=== PATIENT | male | born 1930 | race Two or more races ===

== ENCOUNTER 2017-09-14 02:55 | Emergency (ER) | payer MEDICARE, OTHER ==
--- NOTE | 2017-09-14 03:28 | ED Physician Documentation ---
PD HPI ABD PAIN - Stated complaint Stated Complaint: ABD PAIN/ANXIETY - Chief complaint Chief Complaint: Abd Pain - History obtained from History obtained from: Patient, Family - History of Present Illness Timing - onset: How many days ago (2) Timing - details: Gradual onset, Intermittant Quality: Cramping, Aching Location: Periumbilical, Suprapubic Worsened by: Palpation Associated symptoms: Nausea, Constipation. No: Fever, Vomiting, Diarrhea Similar symptoms before: Work up / diagnostics Recently seen: Emergency Dept - Additional information Additional information: Patient is an 86 year old male with no significant past medical history who is presenting to the emergency department for abdominal pain. Patient states that the pain has been intermittent for the last few days. patient was seen in another emergency department a few days prior and diagnosed with allergies. Patient states that his pain today is around his umbilicus. Review of Systems Constitutional: denies: Fever, Chills Nose: denies: Rhinorrhea / runny nose, Congestion Cardiac: denies: Chest pain / pressure, Palpitations Respiratory: denies: Dyspnea, Cough, Wheezing GI: reports: Abdominal Pain, Constipation. denies: Nausea, Vomiting, Diarrhea, Hematemesis : denies: Dysuria, Frequency, Unable to Void, Hematuria Skin: denies: Rash, Lesions Musculoskeletal: denies: Back pain Immunocompromised: denies: Immunocompromised PD PAST MEDICAL HISTORY - Past Medical History Past Medical History: Yes Respiratory: None Neuro: None Endocrine/Autoimmune: None GI: GERD : Benign prostate hypertrophy HEENT: Glaucoma Derm: None - Past Surgical History Past Surgical History: Yes - Present Medications Home Medications: Ambulatory Orders Medication Instructions Recorded Confirmed HYDROcod/ACETAM 5/325 [Vicodin 0.5 - 1 ea PO Q6H PRN #15 tablet 02/21/14 5/325] diazePAM [Valium] 5 mg PO TID PRN #14 tablet 02/01/16 - Allergies Allergies/Adverse Reactions: Allergies Allergy/AdvReac Type Severity Reaction Status Date / Time diphenhydramine AdvReac Unknown Unknown Verified 02/01/16 01:46 naproxen AdvReac Unknown Verified 09/14/17 03:08 - Social History Does the pt smoke?: No Smoking Status: Never smoker Does the pt drink ETOH?: No Does the pt have substance abuse?: No - Immunizations Immunizations are current?: Yes - POLST Patient has POLST: No PD ED PE NORMAL - Vitals Vital signs reviewed: Yes - General General: Alert and oriented X 3 - HEENT HEENT: Atraumatic - Neck Neck: Supple, no meningeal sign - Cardiac Cardiac: RRR - Respiratory Respiratory: No respiratory distress - Abdomen Abdomen: Soft, Non distended - Derm Derm: Normal color, Warm and dry - Extremities Extremities: No deformity - Neuro Neuro: Alert and oriented X 3 Eye Opening: Spontaneous PD ED PE EXPANDED - Abdomen Abdomen: Tender to palpation, Periumbilical. No: Rebound, Guarding Results - Vitals Vitals: Vital Signs - 24 hr 09/14/17 09/14/17 09/14/17 03:06 03:34 04:16 Temperature 36.0 C L Heart Rate 71 88 Respiratory 17 17 16 Rate Blood Pressure 154/72 H 132/65 H O2 Saturation 99 97 09/14/17 04:57 Temperature Heart Rate 51 L Respiratory 17 Rate Blood Pressure 123/69 O2 Saturation 97 Oxygen O2 Source Room air - Labs Labs: Laboratory Tests 09/14/17 09/14/17 09/14/17 03:20 03:20 03:20 WBC 7.3 RBC 4.79 Hgb 15.1 Hct 45.6 MCV 95.1 H MCH 31.5 H MCHC 33.1 RDW 13.4 Plt Count 209 MPV 7.9 Neut # (Auto) 4.8 Lymph # (Auto) 1.4 L [place] # (Auto) 0.6 Eos # (Auto) 0.2 Baso # (Auto) 0.4 H Absolute Nucleated RBC 0.01 Nucleated RBC % 0.1 VBG pH VBG pCO2 VBG pO2 VBG HCO3 VBG Total CO2 VBG O2 Saturation VBG Base Excess Sodium 137 Potassium 4.3 Chloride 99 L Carbon Dioxide 31 Anion Gap 7.0 BUN 22 H Creatinine 1.2 Estimated GFR (MDRD) 57 L Glucose 104 H Lactic Acid 0.7 Calcium 9.5 Magnesium 2.2 Total Bilirubin 0.9 AST 18 ALT 17 Alkaline Phosphatase 56 Total Protein 6.9 Albumin 3.9 Globulin 3.0 Albumin/Globulin Ratio 1.3 Lipase 30 09/14/17 03:20 WBC RBC Hgb Hct MCV MCH MCHC RDW Plt Count MPV Neut # (Auto) Lymph # (Auto) [place] # (Auto) Eos # (Auto) Baso # (Auto) Absolute Nucleated RBC Nucleated RBC % VBG pH 7.397 VBG pCO2 49.9 VBG pO2 23.7 L VBG HCO3 30.0 H VBG Total CO2 31.5 H VBG O2 Saturation 48.6 L VBG Base Excess 3.9 H Sodium Potassium Chloride Carbon Dioxide Anion Gap BUN Creatinine Estimated GFR (MDRD) Glucose Lactic Acid Calcium Magnesium Total Bilirubin AST ALT Alkaline Phosphatase Total Protein Albumin Globulin Albumin/Globulin Ratio Lipase - Rads (name of study) ct abd pelvis Radiology: Final report received (mild stool burden, diverticulosis, no diverticulitis) PD MEDICAL DECISION MAKING - ED course Complexity details: reviewed old records, reviewed results, re-evaluated patient , considered differential, d/w patient, d/w family ED course: Patient was seen and examined at bedside. IV access was gained and labs were drawn. Patient stated that he did not need pain medication at that time. Patient was started on IV fluids. Imaging was ordered. When patient returned from imaging the results were reviewed. there was no significant abdominal abnormalities, only mild constipation. patient required no further work up at this time and was stable for discharge with outpatient follow up. - Sepsis Event Vital Signs: Vital Signs - 24 hr 09/14/17 09/14/17 09/14/17 03:06 03:34 04:16 Temperature 36.0 C L Heart Rate 71 88 Respiratory 17 17 16 Rate Blood Pressure 154/72 H 132/65 H O2 Saturation 99 97 09/14/17 04:57 Temperature Heart Rate 51 L Respiratory 17 Rate Blood Pressure 123/69 O2 Saturation 97 Oxygen O2 Source Room air Departure - Departure Disposition: 01 Home, Self Care Clinical Impression: Abdominal pain, Constipation Condition: Good Instructions: ED Constipation Follow-Up: Anupam Nathan MD [Primary Care Provider] - Within 3 Days Comments: Your diagnostics today were within normal limits. there was a moderate amount of stool indicating constipation. You should increase your fluid intake and take metamucil or its equivalent daily. You can also take tums or maalox for epigastric pain. you should follow up with your doctor if symptoms persist. you may return to the emergency department at any time for new, worsening or uncontrollable symptoms.
[2017-09-14 03:32] LABS: BASOPHILS # (AUTO) 0.4 10^3/uL (0.0-0.1); EOSINOPHILS # (AUTO) 0.2 10^3/uL (0.0-0.7); EOSINOPHILS % (AUTO) 2.6 %; HGB - HEMOGLOBIN 15.1 g/dL (14.0-18.0); LYMPHOCYTES # (AUTO) 1.4 10^3/uL (1.5-3.5); LYMPHOCYTES % (AUTO) 18.9 %; MEAN CORPUSCULAR HEMOGLOBIN 31.5 pg (27.0-31.0); MEAN CORPUSCULAR HGB CONC 33.1 g/dL (32.0-36.0); MEAN CORPUSCULAR VOLUME 95.1 fL (80.0-94.0); MEAN PLATELET VOLUME 7.9 fL (7.4-11.4); MONOCYTES # (AUTO) 0.6 10^3/uL (0.0-1.0); MONOCYTES % (AUTO) 8.2 %; NEUTROPHILS # (AUTO) 4.8 10^3/uL (1.5-6.6); NEUTROPHILS % (AUTO) 65.3 %; PLT - PLATELET COUNT 209 10^3/uL (130-450); RED BLOOD COUNT 4.79 10^6/uL (4.70-6.10); RED CELL DISTRIBUTION WIDTH 13.4 % (12.0-15.0); WHITE BLOOD COUNT 7.3 x10^3/uL (4.8-10.8)
[2017-09-14 03:43] LABS: ALBUMIN 3.9 g/dL (3.2-5.5); ALBUMIN/GLOBULIN RATIO 1.3 (1.0-2.2); BILIRUBIN,TOTAL 0.9 mg/dL (0.2-1.0); CALCIUM 9.5 mg/dL (8.5-10.3); CREATININE 1.2 mg/dL (0.6-1.2); MAGNESIUM 2.2 mg/dL (1.7-2.8); TOTAL PROTEIN 6.9 g/dL (6.7-8.2)
[2017-09-14] MEDS ORDERED: IOPAMIDOL-300 100 ML VIAL ONE (03:45)
[2017-09-14] MEDS ORDERED: SODIUM CHLORIDE 0.9% 1,000 ML IV ONE (03:47)
[2017-09-14] MEDS ORDERED: IOPAMIDOL-300 100 ML VIAL IVP ONE (04:02)
[2017-09-14 04:03] LABS: VBG PCO2 49.9 mmHg (41-51); VBG PH 7.397 (7.31-7.41); VBG PO2 23.7 mmHg (25-47)
[2017-09-14 04:04] LABS: VBG BASE EXCESS 3.9 mmol/L (-2 - +2); VBG TOTAL CO2 31.5 mmol/L (24-29)
--- NOTE | 2017-09-14 04:31 | CT Preliminary Report ---
Exam: CT ABDOMEN/PELVIS W/ IMPRESSION: 1. Possible fatty liver. 2. Colonic diverticulosis with no definite evidence of diverticulitis. There is moderate stool in the colon. 3. Small hiatal hernia. 4. No other acute abnormality seen. [facility] SITE ID: [id number]
--- NOTE | 2017-09-14 04:31 | CT Report ---
EXAM: CT ABDOMEN AND PELVIS EXAM DATE: 09/14/2017 04:14 AM. CLINICAL HISTORY: Diffuse abdominal pain. COMPARISONS: None. TECHNIQUE: Routine helical CT imaging was performed through the abdomen and pelvis. IV contrast: ISOV UE 300 100mL. Enteric contrast: No. Reconstructions: Coronal and sagittal. In accordance with CT protocol optimization, one or more of the following dose reduction techniques w ere utilized for this exam: automated exposure control, adjustment of mA and/or KV based on patient s ize, or use of iterative reconstructive technique. FINDINGS: Lung Bases: Minimal bibasilar atelectasis. Small hiatal hernia. Liver: Possible fatty infiltration. Gallbladder/Bile Ducts: Status post cholecystectomy. Spleen: Calcified granulomas. Pancreas: Normal. Adrenal Glands: Normal. Kidneys: Normal. No masses or hydronephrosis. Peritoneal Cavity/Bowel: Colonic diverticulosis. No evidence of diverticulitis. Moderate stool in the colon. No bowel obstruction seen. No lymphadenopathy. No free air or free fluid. Appendix is not wel l seen. No evidence of appendicitis. Pelvic Organs: Normal. The bladder and visualized pelvic organs are within normal limits. Vasculature: Mild atherosclerosis. No aortic aneurysm. Bones: Degenerative changes and postoperative changes in the spine. Grade 1 spondylolisthesis at L4-L 5. Other: None. IMPRESSION: 1. Possible fatty liver. 2. Colonic diverticulosis with no definite evidence of diverticulitis. There is moderate stool in the colon. 3. Small hiatal hernia. 4. No other acute abnormality seen. [facility] Referring Provider Line: [phone] SITE ID: [id number]
[2017-09-14 04:59] VITALS: BP 123/69
== END 2017-09-14 05:00 | disposition home or self-care (01) ==
LOC: ED 02:55
DX: R10.33 Periumbilical pain (principal); K59.00 Constipation, unspecified
CPT/HCPCS: 36415; 74177; 80053; 82803; 83605; 83690; 83735; 85025; 99283; 99284; Q9967

== ENCOUNTER 2018-03-06 09:15 | Outpatient (CLI) | payer MEDICARE, OTHER ==
[2018-03-06 15:12] LABS: BASOPHILS % (AUTO) 0.8 %; EOSINOPHILS # (AUTO) 0.1 10^3/uL (0.0-0.7); EOSINOPHILS % (AUTO) 1.9 %; HGB - HEMOGLOBIN 15.1 g/dL (14.0-18.0); LYMPHOCYTES # (AUTO) 1.7 10^3/uL (1.5-3.5); LYMPHOCYTES % (AUTO) 32.3 %; MEAN CORPUSCULAR HEMOGLOBIN 31.2 pg (27.0-31.0); MEAN CORPUSCULAR HGB CONC 33.7 g/dL (32.0-36.0); MEAN CORPUSCULAR VOLUME 92.5 fL (80.0-94.0); MEAN PLATELET VOLUME 8.8 fL (7.4-11.4); MONOCYTES # (AUTO) 0.5 10^3/uL (0.0-1.0); NEUTROPHILS # (AUTO) 2.9 10^3/uL (1.5-6.6); PLT - PLATELET COUNT 239 10^3/uL (130-450); RED BLOOD COUNT 4.82 10^6/uL (4.70-6.10); RED CELL DISTRIBUTION WIDTH 13.7 % (12.0-15.0); WHITE BLOOD COUNT 5.2 x10^3/uL (4.8-10.8)
[2018-03-06 15:22] LABS: ALBUMIN 4.2 g/dL (3.2-5.5); ALBUMIN/GLOBULIN RATIO 1.4 (1.0-2.2); BILIRUBIN,TOTAL 1.4 mg/dL (0.2-1.0); CALCIUM 9.1 mg/dL (8.5-10.3); CREATININE 0.9 mg/dL (0.6-1.2); TOTAL PROTEIN 7.2 g/dL (6.7-8.2)
== END 2018-03-06 23:59 | disposition home or self-care (01) ==
LOC: LAB.R 09:15
PROVIDERS: ATTEND Internal Medicine
DX: I44.0 Atrioventricular block, first degree (principal); K21.9 Gastro-esophageal reflux disease without esophagitis; N40.0 Benign prostatic hyperplasia without lower urinary tract symptoms
CPT/HCPCS: 80053; 85025

== ENCOUNTER 2018-04-10 16:24 | Outpatient (CLI) | payer MEDICARE, OTHER ==
--- NOTE | 2018-04-10 23:41 | XRAY Report ---
Reason: LEG PAIN,RIGHT Procedure Date: 04/10/2018 Accession Number: [id number] / [id number] Procedure: XR - Lumbar Spine Complete CPT Code: FULL RESULT: EXAM: LUMBOSACRAL SPINE RADIOGRAPHY EXAM DATE: 04/10/2018 05:16 PM. CLINICAL HISTORY: Low back and right leg pain. COMPARISONS: None. TECHNIQUE: 5 views including obliques. FINDINGS: Alignment: No scoliosis. 2 mm retrolisthesis at L3-L4 and 8 mm anterolisthesis at L4-L5. Bones: Five [id number] lumbar vertebral bodies are present. No fractures or bone lesions. Disks: Disk space narrowing throughout the lumbar spine endplate spurring. Facets: Lower lumbar facet arthropathy. Sacroiliac Joints: Unremarkable. Soft Tissues: Normal. The visualized bowel gas pattern is normal. IMPRESSION: 1. Multilevel degenerative lumbar disk disease, and lower lumbar facet arthropathy. 2. Anterolisthesis at L4-L5 and retrolisthesis at L3-L4. [facility]
--- NOTE | 2018-04-11 09:01 | XRAY Report ---
Reason: LEG PAIN,RIGHT Procedure Date: 04/10/2018 Accession Number: [id number] / [id number] Procedure: XR - Hip w/Pelvis 2-3V RT CPT Code: FULL RESULT: EXAM: RIGHT HIP AND PELVIS RADIOGRAPHY EXAM DATE: 04/10/2018 04:53 PM. HISTORY: LEG PAIN,RIGHT. COMPARISONS: Abdomen and pelvis CT 09/14/2017. TECHNIQUE: 1 view of the pelvis and 1 view of the hip. FINDINGS: Bones: Right acetabulum is noted. No fracture or bone lesion. There is prominence of the femoral head-neck junctions. Joints: There is mild bilateral subchondral sclerosis of the hips. Joint spaces appear preserved. Soft Tissues: No soft tissue swelling. IMPRESSION: Mild bilateral osteoarthritis of the hips. There is prominence of the femoral head-neck junctions. Correlate clinically for femoral acetabular impingement [facility]
== END 2018-04-10 16:25 | disposition home or self-care (01) ==
LOC: DI 16:24
PROVIDERS: ATTEND Internal Medicine
DX: M16.0 Bilateral primary osteoarthritis of hip (principal); M51.36 Other intervertebral disc degeneration, lumbar region; M47.9 Spondylosis, unspecified; M43.16 Spondylolisthesis, lumbar region
CPT/HCPCS: 72110

== ENCOUNTER 2018-07-01 16:57 | Outpatient (CLI) | payer MEDICARE, OTHER ==
--- NOTE | 2018-07-02 11:12 | XRAY Report ---
Reason: TRAUMATIC ARTHROPATHY OF RIGHT SHOULDER Procedure Date: 07/01/2018 Accession Number: [id number] / [id number] Procedure: XR - Shoulder 3 View RT CPT Code: FULL RESULT: EXAM: RIGHT SHOULDER RADIOGRAPHY EXAM DATE: 07/01/2018 05:32 PM. CLINICAL HISTORY: Traumatic arthropathy of right shoulder. COMPARISON: None. TECHNIQUE: 3 views. FINDINGS: Bones: Normal. No fracture or bone lesion. Joints: The glenohumeral and acromioclavicular joints are normally located with mild degenerative changes. Soft tissues: The visualized hemithorax is unremarkable. No soft tissue swelling. IMPRESSION: No fracture or dislocation is identified. [facility]
== END 2018-07-01 16:58 | disposition home or self-care (01) ==
LOC: DI 16:57
PROVIDERS: ATTEND Family Medicine
DX: M12.511 Traumatic arthropathy, right shoulder (principal)

== ENCOUNTER 2018-09-16 15:50 | Emergency (ER) | payer MEDICARE, OTHER ==
[2018-09-16] MEDS ORDERED: ACETAMINOPHEN 325 MG TABLET PO STA (16:20)
--- NOTE | 2018-09-16 16:48 | XRAY Report ---
Reason: cough Procedure Date: 09/16/2018 Accession Number: [id number] / [id number] Procedure: XR - Chest 2 View X-Ray CPT Code: 50387 FULL RESULT: EXAM: CHEST RADIOGRAPHY EXAM DATE: 09/16/2018 04:37 PM. CLINICAL HISTORY: Cough. COMPARISON: ABDOMEN/PELVIS W/ 09/14/2017 4:02 AM. TECHNIQUE: 2 views. FINDINGS: Lungs/Pleura: No evidence of lobar consolidation or effusion. There are punctate opacities within the lungs which could represent small granulomas. Lungs are well expanded. No pneumothorax. Mediastinum: Heart and mediastinal contours are unremarkable. Other: None. IMPRESSION: No acute intrathoracic plain film abnormality. [facility]
[2018-09-16 17:00] LABS: BASOPHILS % (AUTO) 0.6 %; EOSINOPHILS % (AUTO) 0.7 %; HGB - HEMOGLOBIN 14.2 g/dL (14.0-18.0); LYMPHOCYTES % (AUTO) 17.4 %; MEAN CORPUSCULAR HEMOGLOBIN 30.8 pg (27.0-31.0); MEAN CORPUSCULAR HGB CONC 33.4 g/dL (32.0-36.0); MEAN CORPUSCULAR VOLUME 92.1 fL (80.0-94.0); MEAN PLATELET VOLUME 7.4 fL (7.4-11.4); MONOCYTES # (AUTO) 0.8 10^3/uL (0.0-1.0); MONOCYTES % (AUTO) 12.9 %; NEUTROPHILS % (AUTO) 68.4 %; PLT - PLATELET COUNT 197 10^3/uL (130-450); RED BLOOD COUNT 4.63 10^6/uL (4.70-6.10); RED CELL DISTRIBUTION WIDTH 13.3 % (12.0-15.0); WHITE BLOOD COUNT 5.9 x10^3/uL (4.8-10.8)
[2018-09-16 17:13] LABS: CALCIUM 8.6 mg/dL (8.5-10.3)
[2018-09-16] MEDS ORDERED: AMOX/CLAV 875 MG/125 MG TABLET PO STA (17:39)
--- NOTE | 2018-09-16 17:42 | ED Physician Documentation ---
History of Present Illness - Stated complaint Stated Complaint: FEVER - Chief complaint Chief Complaint: General - History obtained from History obtained from: Patient, Family - History of Present Illness Timing: How many days ago (2) Severity Comments: moderately fatigued Radiates to: no radiation, no pain Improved by: nothing Worsened by: nothing Associated symptoms: cough and low grade fever of 100.7 - Treatment prior to arrival Treatment prior to arrival: none - Additonal information Additional information: Pt brought to the ED by for being fatigued and having a low grade fever for a couple of days. Patient just tired, coughing. No sob. No abdominal pain. No vomiting. No urinary symptoms. No altered mental status or headache. Review of Systems Constitutional: reports: Fever, Chills, Fatigue Throat: denies: Sore throat Cardiac: denies: Chest pain / pressure Respiratory: reports: Cough. denies: Dyspnea, Hemoptysis, Wheezing GI: denies: Abdominal Pain, Nausea, Vomiting Musculoskeletal: denies: Neck pain, Back pain, Joint pain, Extremity swelling Neurologic: reports: Generalized weakness. denies: Headache PD PAST MEDICAL HISTORY - Past Medical History Past Medical History: Yes Respiratory: None Neuro: None Endocrine/Autoimmune: None GI: GERD : Benign prostate hypertrophy HEENT: Glaucoma Derm: None - Past Surgical History Past Surgical History: Yes - Present Medications Home Medications: Ambulatory Orders Medication Instructions Recorded Confirmed HYDROcod/ACETAM 5/325 [Vicodin 0.5 - 1 ea PO Q6H PRN #15 tablet 02/21/14 5/325] diazePAM [Valium] 5 mg PO TID PRN #14 tablet 02/01/16 Amox/Clav 875/125 [Augmentin] 1 each PO Q12H #14 tablet 09/16/18 - Allergies Allergies/Adverse Reactions: Allergies Allergy/AdvReac Type Severity Reaction Status Date / Time diphenhydramine AdvReac Unknown Unknown Verified 09/16/18 15:58 naproxen AdvReac Unknown Verified 09/16/18 15:58 - Social History Does the pt smoke?: No Smoking Status: Never smoker Does the pt drink ETOH?: No Does the pt have substance abuse?: No - Immunizations Immunizations are current?: Yes - POLST Patient has POLST: No PD ED PE NORMAL - Vitals Vital signs reviewed: Yes - General General: Alert and oriented X 3, No acute distress - HEENT HEENT: Atraumatic, PERRL - Neck Neck: Supple, no meningeal sign, No JVD - Cardiac Cardiac: RRR, No murmur, No gallop, No rub - Respiratory Respiratory: No respiratory distress - Abdomen Abdomen: Soft, Non tender, Non distended - Male Male : Deferred - Rectal Rectal: Deferred - Derm Derm: Normal color, Warm and dry, No rash - Neuro Neuro: Alert and oriented X 3 Eye Opening: Spontaneous Motor: Obeys Commands Verbal: Oriented GCS Score: 15 - Psych Psych: Normal mood, Normal affect PD ED PE EXPANDED - Respiratory Respiratory: Rales, Left lower lobe Results - Vitals Vitals: Vital Signs - 24 hr 09/16/18 09/16/18 15:55 16:04 Temperature 38.3 C H 38.2 C H Heart Rate 68 Respiratory 18 Rate Blood Pressure 140/61 H O2 Saturation 97 Oxygen O2 Source Room air - Labs Labs: Laboratory Tests 09/16/18 09/16/18 16:50 16:50 WBC 5.9 RBC 4.63 L Hgb 14.2 Hct 42.6 MCV 92.1 MCH 30.8 MCHC 33.4 RDW 13.3 Plt Count 197 MPV 7.4 Neut # (Auto) 4.0 Lymph # (Auto) 1.0 L [place] # (Auto) 0.8 Eos # (Auto) 0.0 Baso # (Auto) 0.0 Absolute Nucleated RBC 0.01 Nucleated RBC % 0.1 Sodium 135 Potassium 4.0 Chloride 99 L Carbon Dioxide 25 Anion Gap 11.0 BUN 15 Creatinine 1.0 Estimated GFR (MDRD) 71 L Glucose 115 H Calcium 8.6 mild hyperglycemia - Rads (name of study) No standard instances Radiology: Final report received (no acute disease on chest xray ) PD MEDICAL DECISION MAKING - ED course Complexity details: reviewed results, re-evaluated patient, considered d ifferential, d/w patient, d/w family ED course: ddx - pneumonia, bronchitis, viral URI, viral syndrome, sinusitis, meningitis. 87 y/o M well appearing but with low grade fever, cough. Mild LL rales. Normal sats. Normal exam otherwise. No meningeal signs. Pt not altered. Labs are normal except very mild hyperglycemia. CXR clear but pt clinical picture is most c/w pneumonia. Will initiate outpatient antibiotics and pt is stable for outpt f/u with strict return precautions if worsening symptoms. Departure - Departure Disposition: 01 Home, Self Care Clinical Impression: Pneumonia Qualifiers: Pneumonia type: due to unspecified organism Laterality: left Lung location: lower lobe of lung Qualified Code(s): J18.1 - Lobar pneumonia, unspecified organism Condition: Stable Record reviewed to determine appropriate education?: Yes Instructions: Pneumonia Dc Follow-Up: Mitch Jenkins MD [Primary Care Provider] - Within 3 Days (recheck your symptoms) Prescriptions: Amox/Clav 875/125 [Augmentin] 1 each PO Q12H #14 tablet Comments: Your labs in the ED today were normal. Your chest xray did not show any abnormality however you clinically appear to have a pneumonia on your examination. Start the antibiotics prescribed and follow up with your doctor to recheck your symptoms. Take tylenol as needed for fever or pain. If worsening symptoms please return to the ED.
[2018-09-16 18:02] VITALS: BP 124/100
== END 2018-09-16 18:02 | disposition home or self-care (01) ==
LOC: ED 15:50
DX: J18.1 Lobar pneumonia, unspecified organism (principal); R73.9 Hyperglycemia, unspecified
CPT/HCPCS: 36415; 71046; 80048; 85025; 99283; 99284; A9270

== ENCOUNTER 2018-12-20 12:45 | Emergency (ER) | payer MEDICARE, OTHER ==
[2018-12-20 13:11] LABS: BASOPHILS # (AUTO) 0.1 10^3/uL (0.0-0.1); BASOPHILS % (AUTO) 0.8 %; EOSINOPHILS % (AUTO) 0.2 %; HGB - HEMOGLOBIN 16.5 g/dL (14.0-18.0); LYMPHOCYTES # (AUTO) 0.9 10^3/uL (1.5-3.5); LYMPHOCYTES % (AUTO) 9.7 %; MEAN CORPUSCULAR HEMOGLOBIN 31.3 pg (27.0-31.0); MEAN CORPUSCULAR HGB CONC 33.6 g/dL (32.0-36.0); MEAN PLATELET VOLUME 9.3 fL (7.4-11.4); MONOCYTES # (AUTO) 1.1 10^3/uL (0.0-1.0); MONOCYTES % (AUTO) 12.1 %; NEUTROPHILS # (AUTO) 6.8 10^3/uL (1.5-6.6); NEUTROPHILS % (AUTO) 76.9 %; PLT - PLATELET COUNT 214 10^3/uL (130-450); RED BLOOD COUNT 5.28 10^6/uL (4.70-6.10); RED CELL DISTRIBUTION WIDTH 13.1 % (12.0-15.0); WHITE BLOOD COUNT 8.9 x10^3/uL (4.8-10.8)
--- NOTE | 2018-12-20 13:22 | ED Physician Documentation ---
History of Present Illness - Stated complaint Stated Complaint: VOMITING/NOT EATING - Chief complaint Chief Complaint: Abd Pain - History obtained from History obtained from: Patient - History of Present Illness Timing: How many days ago (3) Pain level max: 3 Pain level now: 2 - Additonal information Additional information: 88-year-old male presents to the emergency department with weakness for the past 3 days. States that he had diarrhea for the past 2 days. Today and last night started vomiting. No fevers. No recent travel. Worse with eating, nothing makes it better. No recent antibiotics. No sick contacts. States that his joints are sore as well. Review of Systems Ten Systems: 10 systems reviewed and negative Constitutional: reports: Fever (States had a T-max of 100.7 at home). denies: Chills Nose: denies: Rhinorrhea / runny nose, Congestion Throat: denies: Sore throat Respiratory: denies: Cough GI: reports: Nausea, Vomiting, Diarrhea. denies: Abdominal Pain : denies: Dysuria Skin: denies: Rash Musculoskeletal: denies: Neck pain, Back pain Neurologic: denies: Headache PD PAST MEDICAL HISTORY - Past Medical History Past Medical History: Yes Respiratory: None Neuro: None Endocrine/Autoimmune: None GI: GERD : Benign prostate hypertrophy HEENT: Glaucoma Derm: None - Past Surgical History Past Surgical History: Yes - Present Medications Home Medications: Ambulatory Orders Medication Instructions Recorded Confirmed HYDROcod/ACETAM 5/325 [Vicodin 0.5 - 1 ea PO Q6H PRN #15 tablet 02/21/14 5/325] diazePAM [Valium] 5 mg PO TID PRN #14 tablet 02/01/16 Amox/Clav 875/125 [Augmentin] 1 each PO Q12H #14 tablet 09/16/18 Ondansetron Odt [Zofran] 4 mg TL Q6H PRN #10 tablet 12/20/18 - Allergies Allergies/Adverse Reactions: Allergies Allergy/AdvReac Type Severity Reaction Status Date / Time diphenhydramine AdvReac Unknown Unknown Verified 12/20/18 12:52 naproxen AdvReac Unknown Verified 12/20/18 12:52 - Social History Does the pt smoke?: No Smoking Status: Never smoker Does the pt drink ETOH?: No Does the pt have substance abuse?: No - Immunizations Immunizations are current?: Yes - POLST Patient has POLST: No PD ED PE NORMAL - Vitals Vital signs reviewed: Yes - General General: Alert and oriented X 3, No acute distress, Well developed/nourished - HEENT HEENT: PERRL, Moist mucous membranes - Neck Neck: Supple, no meningeal sign - Cardiac Cardiac: RRR, Strong equal pulses - Respiratory Respiratory: No respiratory distress, Clear bilaterally - Abdomen Abdomen: Normal bowel sounds, Soft, Non tender, Non distended - Back Back: No CVA TTP - Derm Derm: Warm and dry - Extremities Extremities: No edema - Neuro Neuro: Alert and oriented X 3 - Psych Psych: Normal mood, Normal affect Results - Vitals Vitals: Vital Signs - 24 hr 12/20/18 12:48 Temperature 35.8 C L Heart Rate 78 Respiratory 19 Rate Blood Pressure 118/94 H O2 Saturation 99 Oxygen O2 Source Room air - Labs Labs: Laboratory Tests 12/20/18 12/20/18 12/20/18 13:05 13:05 13:35 WBC 8.9 RBC 5.28 Hgb 16.5 Hct 49.1 MCV 93.0 MCH 31.3 H MCHC 33.6 RDW 13.1 Plt Count 214 MPV 9.3 Neut # (Auto) 6.8 H Lymph # (Auto) 0.9 L [place] # (Auto) 1.1 H Eos # (Auto) 0.0 Baso # (Auto) 0.1 Absolute Nucleated RBC 0.00 Nucleated RBC % 0.0 Sodium 137 Potassium 3.9 Chloride 96 L Carbon Dioxide 30 Anion Gap 11.0 BUN 19 Creatinine 1.3 H Estimated GFR (MDRD) 52 L Glucose 108 H Calcium 8.7 Total Bilirubin 1.5 H AST 27 ALT 19 Alkaline Phosphatase 57 Total Protein 7.2 Albumin 4.2 Globulin 3.0 Albumin/Globulin Ratio 1.4 Lipase 26 Urine Color DARK YELLOW Urine Clarity CLEAR Urine pH 6.0 Ur Specific [place] 1.020 Urine Protein NEGATIVE Urine Glucose (UA) NEGATIVE Urine Ketones TRACE Urine Occult Blood SMALL H Urine Nitrite NEGATIVE Urine Bilirubin NEGATIVE Urine Urobilinogen 0.2 (NORMAL) Ur Leukocyte Esterase NEGATIVE Urine RBC 0-5 Urine WBC 0-3 Ur Squamous Epith Cells RARE Squamous Urine Bacteria Rare Urine Mucus Few Strands Ur Microscopic Review INDICATED Urine Culture Comments NOT INDICATED PD MEDICAL DECISION MAKING - ED course Complexity details: reviewed results, re-evaluated patient, considered differential, d/w patient, d/w family ED course: 88-year-old male with what appears to be a viral gastroenteritis. He is very well-appearing, nontoxic. Afebrile. Feels better after IV fluids and Zofran. Tolerating p.o. without difficulty. We will follow-up with his doctor for further care. Abdomen is soft, nontender nondistended on serial exam. Patient counseled regarding signs and symptoms for which I believe and urgent re- evaluation would be necessary. Patient with good understanding of and agreement to plan and is comfortable going home at this time This document was made in part using voice recognition software. While efforts are made to proofread this document, sound alike and grammatical errors may occur. Departure - Departure Disposition: 01 Home, Self Care Clinical Impression: Viral gastroenteritis Condition: Good Instructions: ED Gastroenteritis Viral Follow-Up: Mitch Jenkins MD [Primary Care Provider] - Within 1 week Prescriptions: Ondansetron Odt [Zofran] 4 mg TL Q6H PRN #10 tablet PRN Reason: Nausea / Vomiting Comments: Drink plenty of water at home. Return if you worsen. This should improve over the next day or 2. This is likely a viral illness.
[2018-12-20] MEDS ORDERED: SODIUM CHLORIDE 0.9% 1,000 ML IV ONE (13:23)
[2018-12-20] MEDS ORDERED: ACETAMINOPHEN 325 MG TABLET PO STA (13:23)
[2018-12-20] MEDS ORDERED: ONDANSETRON 4 MG/2 ML VIAL IVP STA (13:23)
[2018-12-20 13:26] LABS: ALBUMIN 4.2 g/dL (3.2-5.5); ALBUMIN/GLOBULIN RATIO 1.4 (1.0-2.2); BILIRUBIN,TOTAL 1.5 mg/dL (0.2-1.0); CALCIUM 8.7 mg/dL (8.5-10.3); CREATININE 1.3 mg/dL (0.6-1.2); TOTAL PROTEIN 7.2 g/dL (6.7-8.2)
[2018-12-20 13:45] LABS: GLUCOSE, URINE (UA) NEGATIVE (NEGATIVE); KETONES,URINE (UA) TRACE mg/dL (NEGATIVE); LEUKOCYTE ESTERASE, URINE NEGATIVE (NEGATIVE); NITRITE,URINE NEGATIVE (NEGATIVE); OCCULT BLOOD,URINE SMALL (NEGATIVE); PROTEIN,URINE NEGATIVE (NEGATIVE); UROBILINOGEN,URINE 0.2 (NORMAL) E.U./dL (NORMAL)
[2018-12-20 13:53] LABS: CLARITY,URINE CLEAR (CLEAR)
[2018-12-20 13:58] LABS: BILIRUBIN,URINE NEGATIVE (NEGATIVE); ICTOTEST,URINE NEGATIVE
[2018-12-20 14:10] LABS: BACTERIA,URINE Rare /HPF (None Seen); MUCUS,URINE Few Strands; RBC,URINE 0-5 /HPF (0-5); SQUAMOUS EPITHELIAL CELL,UR RARE Squamous (<= Few)
[2018-12-20 14:37] VITALS: BP 102/51
== END 2018-12-20 14:37 | disposition home or self-care (01) ==
LOC: ED 12:45
DX: A08.4 Viral intestinal infection, unspecified (principal)
CPT/HCPCS: 36415; 80053; 81001; 83690; 85025; 96361; 96374; 99283; 99284; A9270; 81003; 87086

== ENCOUNTER 2019-08-10 03:55 | Emergency (ER) | payer MEDICARE, OTHER ==
--- NOTE | 2019-08-10 04:51 | XRAY Report ---
Reason: chest pain Procedure Date: 08/10/2019 Accession Number: [id number] / [id number] Procedure: XR - Chest 1 View X-Ray CPT Code: 08958 Final Report FULL RESULT: EXAM: CHEST RADIOGRAPHY EXAM DATE: 08/10/2019 04:44 AM. CLINICAL HISTORY: Chest pain. COMPARISON: CHEST 2 VIEW 09/16/2018 4:32 PM. TECHNIQUE: 2 frontal views obtained. FINDINGS: Lungs/Pleura: Stable small pulmonary granulomas. No lobar consolidation. No pulmonary edema. No pleural effusion. No pneumothorax. Mediastinum: Stable cardiomediastinal contours with borderline cardiac silhouette size. Other: None. IMPRESSION: Stable CXR. No evidence of acute cardiopulmonary process. [facility]
[2019-08-10 04:54] LABS: BASOPHILS # (AUTO) 0.1 10^3/uL (0.0-0.1); BASOPHILS % (AUTO) 0.9 %; EOSINOPHILS # (AUTO) 0.2 10^3/uL (0.0-0.7); EOSINOPHILS % (AUTO) 2.9 %; HGB - HEMOGLOBIN 14.8 g/dL (14.0-18.0); LYMPHOCYTES # (AUTO) 2.2 10^3/uL (1.5-3.5); LYMPHOCYTES % (AUTO) 37.8 %; MEAN CORPUSCULAR HEMOGLOBIN 30.5 pg (27.0-31.0); MEAN CORPUSCULAR HGB CONC 32.8 g/dL (32.0-36.0); MEAN CORPUSCULAR VOLUME 92.8 fL (80.0-94.0); MEAN PLATELET VOLUME 9.4 fL (7.4-11.4); MONOCYTES # (AUTO) 0.6 10^3/uL (0.0-1.0); MONOCYTES % (AUTO) 9.6 %; NEUTROPHILS # (AUTO) 2.8 10^3/uL (1.5-6.6); NEUTROPHILS % (AUTO) 48.3 %; PLT - PLATELET COUNT 212 10^3/uL (130-450); RED BLOOD COUNT 4.86 10^6/uL (4.70-6.10); RED CELL DISTRIBUTION WIDTH 12.9 % (12.0-15.0); WHITE BLOOD COUNT 5.9 x10^3/uL (4.8-10.8)
[2019-08-10 05:04] LABS: ALBUMIN 4.3 g/dL (3.2-5.5); ALBUMIN/GLOBULIN RATIO 1.5 (1.0-2.2); BILIRUBIN,TOTAL 1.3 mg/dL (0.2-1.0); CALCIUM 8.9 mg/dL (8.5-10.3); CREATININE 0.9 mg/dL (0.6-1.2); TOTAL PROTEIN 7.2 g/dL (6.7-8.2)
--- NOTE | 2019-08-10 05:22 | ED Physician Documentation ---
History of Present Illness - Stated complaint Stated Complaint: SHAKY/COLD - Chief complaint Chief Complaint: Abd Pain - History obtained from History obtained from: Patient - History of Present Illness Timing: Today - Additonal information Additional information: 88-year-old male who comes to the emerge department with a chief complaint of shaking. He feels that he is shaking or trembling inside and he has not felt well for about 2 days. He states that he drank some Listerine and spit it out because it tasted horrible and following that he developed a bit of a stomachache and did not feel well for 2 days. This evening he has come to the emergency department with shaking chills. He denies any specific other symptoms denies any fever or cough he denies any urinary urgency he does have frequency and gets up about 4 times per night. This is unchanged. Feels like he just cant get warm. Review of Systems Constitutional: reports: Chills, Fatigue. denies: Fever Eyes: denies: Decreased vision Ears: denies: Ear pain Nose: denies: Rhinorrhea / runny nose, Congestion Throat: denies: Sore throat Cardiac: denies: Chest pain / pressure, Palpitations Respiratory: denies: Dyspnea, Cough GI: reports: Abdominal Pain, Nausea. denies: Vomiting, Constipation, Diarrhea : reports: Frequency. denies: Dysuria, Hematuria Skin: denies: Rash Musculoskeletal: denies: Neck pain, Back pain, Extremity pain PD PAST MEDICAL HISTORY - Past Medical History Past Medical History: Yes Respiratory: None Neuro: None Endocrine/Autoimmune: None GI: GERD : Benign prostate hypertrophy HEENT: Glaucoma Derm: None - Past Surgical History Past Surgical History: Yes - Present Medications Home Medications: Ambulatory Orders Medication Instructions Recorded Confirmed HYDROcod/ACETAM 5/325 [Vicodin 0.5 - 1 ea PO Q6H PRN #15 tablet 02/21/14 5/325] diazePAM [Valium] 5 mg PO TID PRN #14 tablet 02/01/16 Amox/Clav 875/125 [Augmentin] 1 each PO Q12H #14 tablet 09/16/18 Ondansetron Odt [Zofran] 4 mg TL Q6H PRN #10 tablet 12/20/18 - Allergies Allergies/Adverse Reactions: Allergies Allergy/AdvReac Type Severity Reaction Status Date / Time diphenhydramine AdvReac Unknown Unknown Verified 08/10/19 04:15 naproxen AdvReac Unknown Verified 08/10/19 04:15 - Social History Does the pt smoke?: No Smoking Status: Never smoker Does the pt drink ETOH?: No Does the pt have substance abuse?: No - Immunizations Immunizations are current?: Yes - POLST Patient has POLST: No PD ED PE NORMAL - Vitals Vital signs reviewed: Yes (Hypertensive mild) - General General: Alert and oriented X 3, No acute distress, Well developed/nourished - HEENT HEENT: Atraumatic, PERRL, EOMI, Ears normal, Moist mucous membranes - Neck Neck: Supple, no meningeal sign, No bony TTP - Cardiac Cardiac: RRR, No murmur - Respiratory Respiratory: No respiratory distress, Clear bilaterally - Abdomen Abdomen: Soft, Non tender - Back Back: No CVA TTP, No spinal TTP - Derm Derm: Normal color, Warm and dry, No rash - Extremities Extremities: No deformity, No edema - Neuro Neuro: Alert and oriented X 3, electrical high tension tester 2-12 intact, No motor deficit, No sensory deficit, Normal speech Eye Opening: Spontaneous Motor: Obeys Commands Verbal: Oriented GCS Score: 15 - Psych Psych: Normal mood, Normal affect Results - Vitals Vitals: Vital Signs - 24 hr 08/10/19 04:00 Temperature 36.8 C Heart Rate 58 L Respiratory 18 Rate Blood Pressure 161/81 H O2 Saturation 100 Oxygen O2 Source Room air - Labs Labs: Laboratory Tests 08/10/19 08/10/19 08/10/19 04:30 04:44 04:44 WBC 5.9 RBC 4.86 Hgb 14.8 Hct 45.1 MCV 92.8 MCH 30.5 MCHC 32.8 RDW 12.9 Plt Count 212 MPV 9.4 Neut # (Auto) 2.8 Lymph # (Auto) 2.2 [place] # (Auto) 0.6 Eos # (Auto) 0.2 Baso # (Auto) 0.1 Absolute Nucleated RBC 0.00 Nucleated RBC % 0.0 Sodium 137 Potassium 3.7 Chloride 101 Carbon Dioxide 28 Anion Gap 8.0 BUN 15 Creatinine 0.9 Estimated GFR (MDRD) 79 L Glucose 104 H Lactic Acid Calcium 8.9 Total Bilirubin 1.3 H AST 26 ALT 16 Alkaline Phosphatase 47 Total Protein 7.2 Albumin 4.3 Globulin 2.9 Albumin/Globulin Ratio 1.5 Lipase 34 Urine Color YELLOW Urine Clarity CLEAR Urine pH 7.0 Ur Specific [place] 1.015 Urine Protein NEGATIVE Urine Glucose (UA) NEGATIVE Urine Ketones NEGATIVE Urine Occult Blood NEGATIVE Urine Nitrite NEGATIVE Urine Bilirubin NEGATIVE Urine Urobilinogen 0.2 (NORMAL) Ur Leukocyte Esterase NEGATIVE Ur Microscopic Review NOT INDICATED Urine Culture Comments NOT INDICATED 08/10/19 04:44 WBC RBC Hgb Hct MCV MCH MCHC RDW Plt Count MPV Neut # (Auto) Lymph # (Auto) [place] # (Auto) Eos # (Auto) Baso # (Auto) Absolute Nucleated RBC Nucleated RBC % Sodium Potassium Chloride Carbon Dioxide Anion Gap BUN Creatinine Estimated GFR (MDRD) Glucose Lactic Acid 1.1 Calcium Total Bilirubin AST ALT Alkaline Phosphatase Total Protein Albumin Globulin Albumin/Globulin Ratio Lipase Urine Color Urine Clarity Urine pH Ur Specific [place] Urine Protein Urine Glucose (UA) Urine Ketones Urine Occult Blood Urine Nitrite Urine Bilirubin Urine Urobilinogen Ur Leukocyte Esterase Ur Microscopic Review Urine Culture Comments - Rads (name of study) chest Radiology: Prelim report reviewed (Impression: Stable x-ray. No evidence of acute cardiopulmonary process.), EMP read indepedently, See rad report PD MEDICAL DECISION MAKING - ED course Complexity details: reviewed old records, reviewed results, re-evaluated patient, considered differential, d/w patient ED course: 88-year-old previously well male with shaking chills is no obvious findings on physical examination by history and by laboratory and ancillary evaluation. Departure - Departure Disposition: 01 Home, Self Care Clinical Impression: Chills without fever Condition: Stable Instructions: ED Viral Syndrome Follow-Up: Mitch Jenkins MD [Primary Care Provider] -
[2019-08-10 05:27] LABS: BILIRUBIN,URINE NEGATIVE (NEGATIVE); GLUCOSE, URINE (UA) NEGATIVE (NEGATIVE); KETONES,URINE (UA) NEGATIVE (NEGATIVE); LEUKOCYTE ESTERASE, URINE NEGATIVE (NEGATIVE); NITRITE,URINE NEGATIVE (NEGATIVE); OCCULT BLOOD,URINE NEGATIVE (NEGATIVE); PROTEIN,URINE NEGATIVE (NEGATIVE); UROBILINOGEN,URINE 0.2 (NORMAL) E.U./dL (NORMAL)
[2019-08-10 05:28] LABS: CLARITY,URINE CLEAR (CLEAR)
[2019-08-10 05:49] VITALS: BP 129/80
== END 2019-08-10 05:49 | disposition home or self-care (01) ==
LOC: ED 03:55
DX: R68.83 Chills (without fever) (principal)
CPT/HCPCS: 36415; 71045; 80053; 81003; 83605; 83690; 85025; 87040; 99283; 99284; U0004; 81001; 81599; 87086